=== PATIENT | male | born 1965 | race Two or more races ===

== ENCOUNTER 2016-03-26 19:00 | Emergency (ER) | payer MEDICAID, OTHER ==
[~2016-03-26] VITALS: Ht 157.5 cm; Wt 68.0 kg
[2016-03-26 20:04] VITALS: BP 150/89
[2016-03-26] MEDS ORDERED: CHLORPHENIRAMINE4 MG ORAL (21:27)
[2016-03-26] MEDS ORDERED: PROMETH-CODEIN 65 ML PO (21:27)
[2016-03-26 21:30] VITALS: BP 139/89
[2016-03-26 21:39] VITALS: BP 150/89
--- NOTE | 2016-03-27 09:34 | Emergency Room Report ---
History of Present Illness General Chief Complaint: Upper Respiratory Illness Source: Patient Present Illness HPI Patient presents with 4 days or URI. Non-productive cough with some back pain with coughing. Sore throat. Vomit once 3 days ago. No diarrhea. + muscle aches. Not get flu shot this year. No smoke. Allergies: Coded Allergies: No Known Allergies (Unverified , 03/26/16) Patient History Past Medical History: see triage record Social History: Denies: smoking Social History Narrative works in restaurant Reviewed Nursing Documentation: PMH: Agreed, PSxH: Agreed Nursing Documentation-PMH Past Medical History: No Stated History Review of Systems All Other Systems: negative except mentioned in HPI Physical Exam Vital Signs Date Time Temp Pulse Resp B/P Pulse Ox O2 Delivery O2 Flow Rate FiO2 03/26/16 19:31 98.2 100 16 150/89 99 Room Air Sp02 EP Interpretation: reviewed, normal General Appearance: well appearing, no apparent distress Head: normocephalic, atraumatic Eyes: bilateral eye PERRL, bilateral eye normal inspection ENT: hearing grossly normal, normal voice, pharyngeal erythema Neck: full range of motion, supple Respiratory: lungs clear, normal breath sounds, no respiratory distress, speaking full sentences Cardiovascular #1: regular rate, rhythm Cardiovascular #2: 2+ radial (R) Gastrointestinal: normal inspection Musculoskeletal: normal inspection, gait/station normal, normal range of motion Neurologic: alert - grossly normal, normal gait Psychiatric: mood/affect normal Skin: no rash Medical Decision Making Diagnostic Impression: Primary Impression: Upper respiratory infection Qualified Codes: J06.9 - Acute upper respiratory infection, unspecified ER Course Patient with URI sy c/w influenza. Beyond the time period where antiflu meds would help. Will treat symptomatically. Not sound or look bacterial. Patient stable for outpatient observation and treatment. Last Vital Signs Date Time Temp Pulse Resp B/P Pulse Ox O2 Delivery O2 Flow Rate FiO2 03/26/16 21:39 98.2 75 16 150/89 99 Room Air Status: unchanged Disposition: HOME, SELF-CARE Condition: Stable Scripts Chlorpheniramine Maleate (CHLORPHENIRAMINE MALEATE) 4 Mg Tablet 4 MG ORAL Q6HR, #10 TAB 0 Refills Prov: Rafael Jackson M.D. 03/26/16 Promethazine HCl/Codeine (Prometh-Codein 6.25-10 mg/5 ml) 5 Ml Syrup 5 ML PO Q6HR Y for For Cough, #60 ML Prov: Rafael Jackson M.D. 03/26/16 Departure Forms: Return to Work Return to Work in (Days): 2 Return to Work Date: Mar 29, 2016 Patient Instructions: Upper Respiratory Infection, Adult Additional Instructions: Alek tylenol para fievre. Rafael Jackson M.D. Mar 27, 2016 09:34
== END 2016-03-26 21:39 | disposition home or self-care (01) ==
LOC: EMR 21:16
DX: J06.9 Acute upper respiratory infection, unspecified (principal)
CPT/HCPCS: 99282